=== PATIENT | female | born 1990 | race Caucasian/White ===

== ENCOUNTER 2024-05-30 18:08 | Observation (INO) | payer BC ==
[2024-05-30 18:25] VITALS: BMI 34.2
[2024-05-30] MEDS: SODIUM CHLORIDE 0.9% 500 ML INFUS.BAG IV ONE (19:02)
[2024-05-30] MEDS ORDERED: KETOROLAC TROMETHAMINE 30 MG/1 ML VIAL ONE (19:03)
[2024-05-30] MEDS: KETOROLAC TROMETHAMINE 15 MG/ML VIAL IVPUSH ONE (19:05)
[2024-05-30 19:07] LABS: HEMATOCRIT 27.1 % (32.4-45.2); HEMOGLOBIN 9.3 G/dL (10.7-15.3); MCHC 34.4 g/dl (32.0-36.0); MEAN CELL VOLUME 81.6 fl (80-96); MEAN PLT VOLUME 7.9 fl (7.5-11.1); RBC 3.32 10^6/uL (3.60-5.2); RDW 13.9 % (11.6-15.6); WHITE BLOOD COUNT 12.1 10^3/uL (4.0-10.8)
[2024-05-30 19:34] LABS: ALBUMIN 2.6 g/dl (3.4-5.0); BILIRUBIN,TOTAL 0.4 mg/dl (0.2-1); CALCIUM 7.1 mg/dl (8.5-10.1); CREATININE 2.3 mg/dl (0.6-1.3); MAGNESIUM 1.6 mg/dL (1.8-2.4); POTASSIUM 3.5 mmol/L (3.5-5.1); TOT PROT 5.2 g/dl (6.4-8.2)
[2024-05-30] MEDS ORDERED: CEFTRIAXONE 1 GM in DEXTROSE 5%-WATER - 50 ML IVPB ONE (21:04)
[2024-05-30] MEDS ORDERED: AZITHROMYCIN 500 MG VIAL IVPB ONE (21:09)
[2024-05-30] MEDS: AZITHROMYCIN IVPB 500 MG in DEXTROSE 5%-WATER - 250 ML IVPB ONE (21:28)
[2024-05-30] MEDS ORDERED: DOCUSATE SODIUM 100 MG CAPSULE (FP) PO PRN (22:09)
[2024-05-30] MEDS: ACETAMINOPHEN 325 MG TABLET (FP) PO PRN (23:05)
[2024-05-30] MEDS: guaiFENesin/D-METHORPHAN TAB.ER.12H PO SCH (23:05)
[2024-05-30] MEDS: CEFTRIAXONE 1 G/50 ML PREMIX 50 ML IVPB ONE (23:05)
[2024-05-31] MEDS: OSELTAMIVIR PHOSPHATE 75 MG CAPSULE PO SCH (01:09)
[2024-05-31] MEDS ORDERED: PSEUDOEPHEDRINE HCL 30 MG TABLET PO PRN (01:20)
[2024-05-31] MEDS: diphenhydrAMINE HCL 25 MG CAPSULE (FP) PO ONE (01:28)
[2024-05-31] MEDS: SODIUM CHLORIDE 1,000 ML IV SCH ×2 (01:29→21:37)
[2024-05-31 08:01] LABS: INR 1.08 (0.83-1.09); PROTHROMBIN TIME (PATIENT) 12.3 SEC (9.7-13.0)
[2024-05-31 09:02] LABS: CALCIUM 7.7 mg/dl (8.5-10.1); CREATININE 2.8 mg/dl (0.6-1.3); MAGNESIUM 1.8 mg/dL (1.8-2.4); PHOSPHOROUS 3.8 (2.5-4.9); POTASSIUM 3.5 mmol/L (3.5-5.1)
[2024-05-31 09:28] LABS: BASO % 0.3 % (0-2.0); HEMATOCRIT 33.9 % (32.4-45.2); HEMOGLOBIN 11.1 GM/dL (10.7-15.3); LYMPH % 15.4 % (8-40); MCH 26.7 pg (25.7-33.7); MCHC 32.8 g/dl (32.0-36.0); MEAN CELL VOLUME 81.2 fl (80-96); MEAN PLT VOLUME 8.4 fl (7.5-11.1); MONO % 4.2 % (3.8-10.2); NEUT % 80.1 % (42.8-82.8); PLATELET COUNT 181 10^3/uL (134-434); RBC 4.17 M/mm3 (3.60-5.2); RDW 13.7 % (11.6-15.6); WHITE BLOOD COUNT 11.3 K/mm3 (4.0-10.0)
[2024-05-31] MEDS ORDERED: ACETAMINOPHEN 325 MG TABLET (FP) PO PRN (21:01)
[2024-05-31] MEDS: CEFTRIAXONE 1 GM in DEXTROSE 5%-WATER - 50 ML IVPB SCH (21:37)
[2024-05-31] MEDS ORDERED: diphenhydrAMINE HCL 25 MG CAPSULE (FP) PO PRN (22:00)
[2024-05-31] MEDS: AZITHROMYCIN IVPB 500 MG in DEXTROSE 5%-WATER - 250 ML IVPB SCH (23:32)
[2024-06-01] MEDS ORDERED: ACETAMINOPHEN 1000 MG/100 ML BAG IVPB PRN (00:03)
[2024-06-01] MEDS: VANCOMYCIN PREMIX 1.75 GM 1,750 MG/350 ML PIGGYBACK IVPB ONE (03:22)
[2024-06-01 08:52] LABS: ALBUMIN 2.6 g/dl (3.4-5.0); ALK PHOS 61 U/L (45-117); ANION GAP 9 mmol/L (4-13); BILIRUBIN,TOTAL 0.2 mg/dl (0.2-1); CALCIUM 7.5 mg/dl (8.5-10.1); CHLORIDE 108 mmol/L (98-107); CO2 21 mmol/L (21-32); CREATININE 2.6 mg/dl (0.6-1.3); GLUCOSE,RANDOM 85 mg/dl (74-106); LDH 246 U/L (84-246); POTASSIUM 3.8 mmol/L (3.5-5.1); SGOT/AST 21 U/L (15-37); SGPT/ALT 18 U/L (7-52); SODIUM 138 mmol/L (136-145); TOT PROT 5.1 g/dl (6.4-8.2)
[2024-06-01 09:36] LABS: BASO % 0.6 % (0-2.0); EOS % 0.5 % (0-4.5); HEMATOCRIT 30.6 % (32.4-45.2); HEMOGLOBIN 10.1 GM/dL (10.7-15.3); LYMPH % 34.8 % (8-40); MCH 26.9 pg (25.7-33.7); MCHC 32.8 g/dl (32.0-36.0); MEAN CELL VOLUME 81.8 fl (80-96); MEAN PLT VOLUME 8.3 fl (7.5-11.1); MONO % 5.8 % (3.8-10.2); NEUT % 58.3 % (42.8-82.8); PLATELET COUNT 180 10^3/uL (134-434); RBC 3.74 M/mm3 (3.60-5.2); RDW 14.3 % (11.6-15.6); WHITE BLOOD COUNT 5.9 K/mm3 (4.0-10.0)
[2024-06-01] MEDS: OSELTAMIVIR PHOSPHATE 30 MG CAPSULE PO SCH (09:46)
[2024-06-01 09:59] LABS: IRON SERUM 20 ug/dL (50-175); TOTAL IRON BINDING CAPACITY 182 ug/dL (250-450)
[2024-06-01] MEDS: HEPARIN NA (PORCINE) 5,000 UNITS/ML 1ML VIAL SQ SCH (21:12)
[2024-06-01] MEDS: AZITHROMYCIN IVPB 500 MG/250 ML BAG IVPB SCH (21:14)
[2024-06-02 08:51] LABS: ALBUMIN 2.4 g/dl (3.4-5.0); BILIRUBIN,TOTAL 0.2 mg/dl (0.2-1); CALCIUM 7.4 mg/dl (8.5-10.1); CREATININE 2.3 mg/dl (0.6-1.3); PHOSPHOROUS 4.7 (2.5-4.9); POTASSIUM 3.9 mmol/L (3.5-5.1); TOT PROT 4.8 g/dl (6.4-8.2)
[2024-06-02] MEDS: NIFEdipine E.R. 30 MG TABLET PO SCH (09:39)
[2024-06-02] MEDS: LACTATED RINGERS SOLUTION 1,000 ML/1,000 ML INFUS.BAG IV SCH (09:41)
[2024-06-02] MEDS ORDERED: AZITHROMYCIN IVPB 500 MG in DEXTROSE 5%-WATER - 250 ML IVPB SCH (10:00)
[2024-06-02] MEDS ORDERED: AZITHROMYCIN IVPB 250 MG in DEXTROSE 5%-WATER - 250 ML IVPB SCH (10:00)
[2024-06-02 10:08] LABS: BASO % 0.7 % (0-2.0); EOS % 1.3 % (0-4.5); HEMATOCRIT 26.9 % (32.4-45.2); LYMPH % 41.6 % (8-40); MCH 26.9 pg (25.7-33.7); MCHC 33.5 g/dl (32.0-36.0); MEAN CELL VOLUME 80.4 fl (80-96); MEAN PLT VOLUME 8.2 fl (7.5-11.1); NEUT % 48.4 % (42.8-82.8); PLATELET COUNT 198 10^3/uL (134-434); RBC 3.34 M/mm3 (3.60-5.2); RDW 13.7 % (11.6-15.6); WHITE BLOOD COUNT 5.5 K/mm3 (4.0-10.0)
[2024-06-02] MEDS: ACETAMINOPHEN 325 MG TABLET (FP) PO PRN (18:51)
[2024-06-03 08:20] LABS: HEMOGLOBIN 9.7 G/dL (10.7-15.3); MCH 27.2 pg (25.7-33.7); MCHC 33.6 g/dl (32.0-36.0); MEAN CELL VOLUME 81.1 fl (80-96); MEAN PLT VOLUME 8.6 fl (7.5-11.1); PLATELET COUNT 238.3 10^3/uL (134-434); RBC 3.58 10^6/uL (3.60-5.2); RDW 14.5 % (11.6-15.6); WHITE BLOOD COUNT 4.6 10^3/uL (4.0-10.8)
[2024-06-03 08:47] LABS: ALBUMIN 2.7 g/dl (3.4-5.0); CREATININE 1.8 mg/dl (0.6-1.3); TOT PROT 5.3 g/dl (6.4-8.2)
[2024-06-03 10:57] LABS: BILIRUBIN,TOTAL 0.2 mg/dl (0.2-1)
[2024-06-03 11:22] LABS: PLATELET ESTIMATE ADEQUATE
[2024-06-03] MEDS: FLUTICASONE PROP 0.05% 16 GM NASAL SPRAY NS SCH (12:30)
[2024-06-03] MEDS: OSELTAMIVIR PHOSPHATE 75 MG CAPSULE PO SCH (21:26)
[2024-06-04 06:43] VITALS: PULSE 78
[2024-06-04 08:39] LABS: CALCIUM 8.2 mg/dl (8.5-10.1); CREATININE 1.9 mg/dl (0.6-1.3); MAGNESIUM 1.7 mg/dL (1.8-2.4); PHOSPHOROUS 5.2 (2.5-4.9); POTASSIUM 4.1 mmol/L (3.5-5.1)
[2024-06-04 08:40] LABS: EPITHELIAL CELLS 0-5 /hpf
[2024-06-04 09:20] LABS: BASO % 0.7 % (0-2.0); EOS % 2.5 % (0-4.5); HEMATOCRIT 29.2 % (32.4-45.2); HEMOGLOBIN 9.9 GM/dL (10.7-15.3); MCH 26.8 pg (25.7-33.7); MCHC 33.8 g/dl (32.0-36.0); MEAN CELL VOLUME 79.3 fl (80-96); MEAN PLT VOLUME 7.4 fl (7.5-11.1); NEUT % 47.8 % (42.8-82.8); PLATELET COUNT 306 10^3/uL (134-434); RBC 3.68 M/mm3 (3.60-5.2); RDW 13.4 % (11.6-15.6); WHITE BLOOD COUNT 5.1 K/mm3 (4.0-10.0)
[2024-06-04] MEDS ORDERED: MAGNESIUM SULF 50% (8.12 MEQ/2 ML-1 GM VIAL) IVPB ONE (09:44)
[2024-06-04 09:48] VITALS: BP 149/92; RESP 18; TEMP 98.2
[2024-06-04] MEDS: MAGNESIUM 1GM/D5W - 1 GM/100 ML IVPB IVPB ONE (10:15)
[2024-06-04 23:06] LABS: ANTIGLOMERULAR BASEMENT MEN.AB <0.2 units (0.0-0.9)
[2024-06-05 16:07] LABS: C-ANCA <1:20 titer (Neg:<1:20)
== END 2024-06-04 12:08 | disposition home or self-care (01) ==
LOC: FER 18:08 → FM/S 21:12
PROVIDERS: ADMIT Internal Medicine
PROC: 3E03329 Introduction of Other Anti-infective into Peripheral Vein, Percutaneous Approach (ICD-10-PCS; principal; 2024-05-30)
PROC: 3E0333Z Introduction of Anti-inflammatory into Peripheral Vein, Percutaneous Approach (ICD-10-PCS; 2024-05-30)
PROC: 3E023GC Introduction of Other Therapeutic Substance into Muscle, Percutaneous Approach (ICD-10-PCS; 2024-05-30)
PROC: 3E0337Z Introduction of Electrolytic and Water Balance Substance into Peripheral Vein, Percutaneous Approach (ICD-10-PCS; 2024-05-30)
DX: J09.X1 Influenza due to identified novel influenza A virus with pneumonia (principal); R78.81 Bacteremia; N17.9 Acute kidney failure, unspecified; N18.9 Chronic kidney disease, unspecified; E87.1 Hypo-osmolality and hyponatremia
CPT/HCPCS: 0241U-QW; 36415; 71046-TC-FY; 76775-TC; 80048; 80053; 81003; 81015; 82436; 82570; 82728; 83516; 83520; 83540; 83550; 83615; 83735; 84100; 84133; 84155; 84165; 84300; 84703; 85025; 85045; 85610; 85730; 86038; 86160; 86225; 86256; 87040; 87070; 87205; 87899; 93005; 99285-25; G0378; G0480; J1644; J3370